=== PATIENT | female | born 1980 | race Native Hawaiian/Other Pacific Islander ===

== ENCOUNTER 2020-01-22 06:23 | Emergency (ER) | payer OTHER ==
[2020-01-22 06:57] VITALS: BP 126/72
--- NOTE | 2020-01-22 07:48 | XRay Report ---
CHEST PA AND LATERAL VIEWS INDICATION: chestpain. COMPARISON: None. FINDINGS: Support devices: None. Heart: Within normal limits. Lungs/Pleura: No acute pulmonary or pleural findings. IMPRESSION: 1. No acute findings. Signer Name: Jero Lopez MD Signed: 01/22/2020 7:44 AM Workstation Name: [id number]
[2020-01-22] MEDS ORDERED: NAPROXEN 500 MG TAB PO SCH (08:00)
[2020-01-22] MEDS ORDERED: IBUPROFEN 800 MG TAB PO ONE (08:01)
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
== END 2020-01-22 08:10 | disposition home or self-care (01) ==
LOC: ED 06:23
DX: M94.0 Chondrocostal junction syndrome [Tietze] (principal); F17.200 Nicotine dependence, unspecified, uncomplicated; Z79.899 Other long term (current) drug therapy; Z98.890 Other specified postprocedural states; V49.59XA Passenger injured in collision with other motor vehicles in traffic accident, initial encounter; Y92.410 Unspecified street and highway as the place of occurrence of the external cause; Y93.89 Activity, other specified; Y99.8 Other external cause status
CPT/HCPCS: 71045; 93005